=== PATIENT | female | born 1995 | race Caucasian/White ===

== ENCOUNTER 2023-03-16 15:56 | Inpatient (IN) | payer MEDICAID ==
[~2023-03-16] VITALS: Ht 165.1 cm; Wt 101.6 kg
[2023-03-16 17:41] VITALS: RESP 17; TEMP 98.2
[2023-03-16 18:11] VITALS: BP 118/71; PULSE 104; RESP 18; TEMP 98; O2SAT 99
[2023-03-16] MEDS: LORazepam 2 MG TABLET PO PRN (20:37)
[2023-03-16] MEDS: ZOLPIDEM TARTRATE 10 MG TABLET PO PRN (20:37)
[2023-03-16 20:40] VITALS: BP 118/73; PULSE 95; RESP 18; TEMP 97; O2SAT 98
[2023-03-16] MEDS ORDERED: IBUPROFEN 600 MG TABLET PO PRN (21:15)
[2023-03-16] MEDS ORDERED: ALBUTEROL SULFATE HFA 90 MCG/PUFF 8 GM INHALER IH PRN (21:15)
[2023-03-16] MEDS ORDERED: BACITRACIN 28 GM OINTMENT TP PRN (21:15)
[2023-03-16] MEDS ORDERED: LOPERAMIDE HCL 2 MG CAPSULE PO PRN (21:15)
[2023-03-16] MEDS ORDERED: MAG HYDROX/AL HYDROX/SIMETH ES 30 ML SUSPENSION UDCUP PO PRN (21:15)
[2023-03-16] MEDS ORDERED: CloNIDine HCL 0.1 MG TABLET PO PRN (21:15)
[2023-03-16] MEDS ORDERED: ONDANSETRON HCL 4 MG TABLET PO PRN (21:15)
[2023-03-16] MEDS ORDERED: ACETAMINOPHEN 325 MG TABLET PO PRN (21:15)
[2023-03-16] MEDS ORDERED: OMEPRAZOLE 20 MG CAPSULE PO PRN (21:15)
[2023-03-16] MEDS ORDERED: DOCUSATE SODIUM 100 MG CAPSULE PO PRN (21:15)
[2023-03-16] MEDS ORDERED: PETROLATUM,WHITE 28 GM JELLY TP PRN (21:15)
[2023-03-16] MEDS ORDERED: MAGNESIUM HYDROXIDE SUSPENSION 30 ML UDCUP PO PRN (21:15)
[2023-03-17] MEDS: NYSTATIN 15 GM POWDER BOTTLE TP SCH ×2 (08:12→17:06)
[2023-03-17 09:10] LABS: BASOPHILS % (AUTO) 1.4 % (0.0-2.0); EOSINOPHILS % (AUTO) 1.8 % (1.0-6.0); HEMATOCRIT 38.3 % (36-46); HEMOGLOBIN 12.6 g/dL (12.0-16.0); LYMPHOCYTES # (AUTO) 2.8 K/uL (1.0-4.8); LYMPHOCYTES % (AUTO) 27.1 % (22.0-44.0); MEAN CORPUSCULAR HEMOGLOBIN 27.2 pg (26.0-34.0); MEAN CORPUSCULAR HGB CONC 32.8 G/dL (31.0-37.0); MEAN CORPUSCULAR VOLUME 83 fL (80-100); MONOCYTES # (AUTO) 0.8 K/uL (0.1-1.0); MONOCYTES % (AUTO) 7.5 % (2.0-9.0); NEUTROPHILS # (AUTO) 6.5 K/uL (1.8-7.7); NEUTROPHILS % (AUTO) 62.2 % (40.0-70.0); PLATELET COUNT (AUTO) 248 K/uL (150-450); RED BLOOD CELL COUNT(AUTO) 4.63 MIL/uL (4.00-5.20); RED CELL DISTRIBUTION WIDTH 14.3 % (11.5-14.5)
[2023-03-17 09:18] VITALS: BP 125/67; PULSE 91; RESP 18; TEMP 98; O2SAT 93
[2023-03-17 09:26] LABS: HEMOGLOBIN A1C 5.7 % (3.8-5.6)
[2023-03-17 09:53] LABS: ALANINE AMINOTRANSFERASE 38 U/L (12-78); ALBUMIN 3.2 g/dL (3.4-5.0); ALKALINE PHOSPHATASE 76 U/L (46-116); ANION GAP 6 mmol/L (8-16); ASPARTATE AMINOTRANSFERASE 22 U/L (15-37); BILIRUBIN,TOTAL 0.7 mg/dL (0.1-1.0); CARBON DIOXIDE 27 mmol/L (22-29); CHLORIDE 103 mmol/L (98-107); CHOLESTEROL 128 mg/dL (131-200); CREATININE 0.85 mg/dL (0.60-1.30); FREE T4 (FREE THYROXINE) 0.92 ng/dL (0.76-1.46); GLOMERULAR FILTR. RATE CALC > 60 mL/min (>60); GLUCOSE,RANDOM 103 mg/dL (70-110); HCG,QUANTITATIVE < 1 mIU/mL (0-6); HDL CHOLESTEROL 32 mg/dL (40-60); LDL CHOL (CALC.) 79 mg/dL (0-130); POTASSIUM 4.2 mmol/L (3.5-5.1); SODIUM SERUM 136 mmol/L (136-145); THYROID STIMULATING HORMONE 1.83 uIU/mL (0.36-3.74); TOTAL PROTEIN, SERUM 7.4 g/dL (6.4-8.2); TRIGLYCERIDES 86 mg/dL (15-150)
[2023-03-17] MEDS: LORazepam 2 MG TABLET PO PRN (13:19)
[2023-03-17] MEDS: RisperiDONE 1 MG TABLET PO SCH (18:09)
[2023-03-17 20:03] VITALS: BP 121/69; PULSE 96; RESP 18; TEMP 97.8
[2023-03-18 07:06] LABS: HEPATITIS C AB (EIA) Non Reactive (Non Reactive)
[2023-03-18 08:16] VITALS: BP 137/72; PULSE 102; RESP 18; TEMP 97.8; O2SAT 96
[2023-03-18] MEDS: NYSTATIN 15 GM POWDER BOTTLE TP SCH ×2 (08:28→16:13)
[2023-03-18] MEDS: RisperiDONE 1 MG TABLET PO SCH ×2 (08:28→16:13)
[2023-03-18] MEDS: LORazepam 2 MG TABLET PO PRN ×2 (08:59→20:17)
[2023-03-18 18:24] VITALS: BP 112/52; PULSE 97; RESP 18; TEMP 97.3; O2SAT 98
[2023-03-18 20:00] VITALS: BP 135/86; PULSE 115; RESP 18; TEMP 97.3; O2SAT 97
[2023-03-18] MEDS: ZOLPIDEM TARTRATE 10 MG TABLET PO PRN (20:18)
[2023-03-18 23:30] VITALS: BP 128/82; PULSE 89; RESP 18; TEMP 97.6; O2SAT 98
[2023-03-19] MEDS: RisperiDONE 1 MG TABLET PO SCH ×2 (08:25→16:25)
[2023-03-19] MEDS: NYSTATIN 15 GM POWDER BOTTLE TP SCH ×2 (08:26→16:25)
[2023-03-19 09:55] VITALS: BP 144/90; PULSE 100; RESP 19; TEMP 97.8; O2SAT 97
[2023-03-19] MEDS: ZOLPIDEM TARTRATE 10 MG TABLET PO PRN (20:05)
[2023-03-19 20:11] VITALS: BP 134/84; PULSE 103; RESP 18; TEMP 97.3; O2SAT 98
[2023-03-20] MEDS: RisperiDONE 1 MG TABLET PO SCH ×2 (08:00→16:36)
[2023-03-20] MEDS: NYSTATIN 15 GM POWDER BOTTLE TP SCH ×2 (08:00→16:42)
[2023-03-20 09:09] LABS: APPEARANCE,URINE CLEAR (CLEAR); BILIRUBIN,URINE NEGATIVE (NEGATIVE); GLUCOSE, URINE (UA) NEGATIVE (NEGATIVE); KETONES,URINE NEGATIVE (NEGATIVE); LEUKOCYTE ESTERASE ,URINE NEGATIVE (NEGATIVE); NITRATE,URINE NEGATIVE (NEGATIVE); OCCULT BLOOD,URINE NEGATIVE (NEGATIVE); PROTEIN,URINE NEGATIVE (NEGATIVE); SPECIFIC GRAVITIY, URINE 1.013 (1.003-1.030); UROBILINOGEN,URINE <=1.0 mg/dL (<=1.0)
[2023-03-20 09:18] VITALS: BP 128/56; PULSE 89; RESP 19; TEMP 97.8; O2SAT 97
[2023-03-20 09:19] LABS: AMPHET/METH SCREEN,URINE NEGATIVE (NEGATIVE); BARBITURATE SCREEN, URINE NEGATIVE (NEGATIVE); BENZODIAZEPINES SCREEN,URINE NEGATIVE (NEGATIVE); CANNABINOID SCREEN,URINE NEGATIVE (NEGATIVE); COCAINE SCREEN,URINE NEGATIVE (NEGATIVE); METHADONE SCREEN, URINE NEGATIVE (NEGATIVE); OPIATE SCREEN,URINE NEGATIVE (NEGATIVE); PHENCYCLIDINE SCREEN,URINE NEGATIVE (NEGATIVE)
[2023-03-20] MEDS: NICOTINE POLACRILEX 4 MG LOZENGE PO PRN ×2 (10:19→16:20)
[2023-03-20 12:46] VITALS: RESP 17
[2023-03-20 13:46] VITALS: RESP 18
[2023-03-20 20:11] VITALS: BP 108/69; PULSE 97; RESP 18; TEMP 97.7; O2SAT 98
[2023-03-20] MEDS: ZOLPIDEM TARTRATE 10 MG TABLET PO PRN (20:20)
[2023-03-21] MEDS: NYSTATIN 15 GM POWDER BOTTLE TP SCH ×2 (08:22→18:29)
[2023-03-21] MEDS: RisperiDONE 1 MG TABLET PO SCH ×2 (08:22→18:28)
[2023-03-21 08:27] VITALS: BP 114/69; PULSE 84; RESP 16; TEMP 97.9; O2SAT 96
[2023-03-21] MEDS: NICOTINE POLACRILEX 4 MG LOZENGE PO PRN ×3 (09:45→18:29)
[2023-03-21 20:29] VITALS: BP 129/82; PULSE 99; RESP 17; TEMP 97.7; O2SAT 100
[2023-03-21] MEDS: ZOLPIDEM TARTRATE 10 MG TABLET PO PRN (20:30)
[2023-03-21] MEDS: LORazepam 2 MG TABLET PO PRN (20:30)
[2023-03-22] MEDS ORDERED: RisperiDONE MICROSPHERES 50 MG/2 ML SYRINGE IM ONE (08:15)
[2023-03-22] MEDS: RisperiDONE 1 MG TABLET PO SCH (08:38)
[2023-03-22] MEDS: NYSTATIN 15 GM POWDER BOTTLE TP SCH ×2 (08:46→16:13)
[2023-03-22 08:58] VITALS: BP 100/60; PULSE 80; RESP 17; TEMP 98; O2SAT 97
[2023-03-22] MEDS ORDERED: RisperiDONE MICROSPHERES 50 MG/2 ML SYRINGE IM SCH (09:00)
[2023-03-22] MEDS: NICOTINE POLACRILEX 4 MG LOZENGE PO PRN ×2 (13:40→17:44)
[2023-03-22] MEDS: RisperiDONE 2 MG TABLET PO SCH (16:13)
[2023-03-22] MEDS: LORazepam 2 MG TABLET PO PRN (16:13)
[2023-03-22 20:11] VITALS: BP 101/67; PULSE 107; RESP 20; TEMP 97.8; O2SAT 98
[2023-03-23] MEDS: RisperiDONE 2 MG TABLET PO SCH ×2 (08:12→16:03)
[2023-03-23] MEDS: NYSTATIN 15 GM POWDER BOTTLE TP SCH ×2 (08:12→16:02)
[2023-03-23 08:20] VITALS: BP 113/69; PULSE 78; RESP 16; TEMP 98.6; O2SAT 96
[2023-03-23] MEDS: NICOTINE POLACRILEX 4 MG LOZENGE PO PRN (15:30)
[2023-03-23 21:12] VITALS: BP 122/68; PULSE 96; RESP 18; TEMP 97.8; O2SAT 99
[2023-03-24] MEDS: NYSTATIN 15 GM POWDER BOTTLE TP SCH ×2 (08:21→16:30)
[2023-03-24] MEDS: RisperiDONE 1 MG TABLET PO PRN (08:23)
[2023-03-24] MEDS: RisperiDONE 2 MG TABLET PO SCH ×2 (08:30→16:30)
[2023-03-24] MEDS: NICOTINE POLACRILEX 4 MG LOZENGE PO PRN ×2 (08:57→16:31)
[2023-03-24 11:28] VITALS: BP 126/76; PULSE 89; RESP 18; TEMP 97.4; O2SAT 97
[2023-03-24] MEDS: LORazepam 2 MG TABLET PO PRN (18:09)
[2023-03-24 20:43] VITALS: BP 122/80; PULSE 96; RESP 19; TEMP 97.1; O2SAT 96
[2023-03-25 08:09] VITALS: BP 116/74; PULSE 76; RESP 16; TEMP 98; O2SAT 98
[2023-03-25] MEDS: RisperiDONE 2 MG TABLET PO SCH ×2 (08:20→16:22)
[2023-03-25] MEDS: NYSTATIN 15 GM POWDER BOTTLE TP SCH ×2 (08:21→16:39)
[2023-03-25] MEDS: NICOTINE POLACRILEX 4 MG LOZENGE PO PRN (16:19)
[2023-03-25] MEDS: LORazepam 2 MG TABLET PO PRN (16:22)
[2023-03-25 22:23] VITALS: BP 117/68; PULSE 75; RESP 18; TEMP 97.9
[2023-03-26 08:24] VITALS: BP 137/60; PULSE 100; RESP 17; TEMP 98; O2SAT 98
[2023-03-26] MEDS: NYSTATIN 15 GM POWDER BOTTLE TP SCH ×2 (08:25→16:48)
[2023-03-26] MEDS: RisperiDONE 2 MG TABLET PO SCH ×2 (08:25→16:08)
[2023-03-26] MEDS: LORazepam 2 MG TABLET PO PRN ×2 (09:43→15:48)
[2023-03-26] MEDS: NICOTINE POLACRILEX 4 MG LOZENGE PO PRN (15:48)
[2023-03-26] MEDS ORDERED: LORazepam 2 MG/ML VIAL ONE (16:48)
[2023-03-26] MEDS ORDERED: DiphenhydrAMINE HCL 50 MG/ML VIAL ONE (16:48)
[2023-03-26] MEDS ORDERED: LORazepam 2 MG/ML VIAL IM ONE (17:00)
[2023-03-26] MEDS ORDERED: HALOPERIDOL LACTATE 5 MG/ML VIAL IM ONE (17:00)
[2023-03-26] MEDS ORDERED: DiphenhydrAMINE HCL 50 MG/ML VIAL IM ONE (17:00)
[2023-03-26 20:00] VITALS: BP 124/68; PULSE 89; RESP 19; TEMP 97.9; O2SAT 98
[2023-03-27] MEDS: NYSTATIN 15 GM POWDER BOTTLE TP SCH ×2 (08:13→16:03)
[2023-03-27] MEDS: RisperiDONE 2 MG TABLET PO SCH ×2 (08:13→16:03)
[2023-03-27] MEDS: LORazepam 2 MG TABLET PO PRN ×3 (08:13→21:21)
[2023-03-27 08:40] VITALS: BP 125/79; PULSE 108; RESP 17; TEMP 98.1; O2SAT 99
[2023-03-27] MEDS: NICOTINE POLACRILEX 4 MG LOZENGE PO PRN (16:19)
[2023-03-27] MEDS: ZOLPIDEM TARTRATE 10 MG TABLET PO PRN (21:21)
[2023-03-28 02:13] VITALS: BP 128/77; PULSE 85; RESP 18; TEMP 98; O2SAT 98
[2023-03-28 08:37] VITALS: BP 106/68; PULSE 79; RESP 16; TEMP 98; O2SAT 96
[2023-03-28] MEDS: NYSTATIN 15 GM POWDER BOTTLE TP SCH ×3 (09:08→17:13)
[2023-03-28] MEDS: RisperiDONE 2 MG TABLET PO SCH ×2 (09:08→16:49)
[2023-03-28] MEDS: LORazepam 2 MG TABLET PO PRN (13:08)
[2023-03-28] MEDS: NICOTINE POLACRILEX 4 MG LOZENGE PO PRN ×2 (13:08→17:09)
[2023-03-28 20:32] VITALS: BP 145/84; PULSE 101; RESP 18; TEMP 97.6; O2SAT 97
[2023-03-29] MEDS: LORazepam 2 MG TABLET PO PRN ×2 (08:14→16:22)
[2023-03-29] MEDS: NYSTATIN 15 GM POWDER BOTTLE TP SCH ×2 (08:14→16:17)
[2023-03-29] MEDS: RisperiDONE 1 MG TABLET PO PRN (08:14)
[2023-03-29 08:18] VITALS: BP 116/72; PULSE 69; RESP 16; TEMP 98.2; O2SAT 97
[2023-03-29] MEDS: RisperiDONE 2 MG TABLET PO SCH ×2 (08:55→16:19)
[2023-03-29] MEDS: NICOTINE POLACRILEX 4 MG LOZENGE PO PRN (09:56)
[2023-03-29 20:17] VITALS: BP 119/79; PULSE 112; RESP 18; TEMP 98; O2SAT 99
[2023-03-30 08:30] VITALS: BP 111/70; PULSE 94; RESP 18; TEMP 97.7; O2SAT 97
[2023-03-30] MEDS: RisperiDONE 2 MG TABLET PO SCH ×2 (08:42→16:16)
[2023-03-30] MEDS: NYSTATIN 15 GM POWDER BOTTLE TP SCH ×2 (08:43→16:17)
[2023-03-30] MEDS: NICOTINE POLACRILEX 4 MG LOZENGE PO PRN ×2 (09:18→16:19)
[2023-03-30 20:14] VITALS: BP 125/85; PULSE 111; RESP 22; TEMP 98.4; O2SAT 98
[2023-03-31 08:39] VITALS: BP 136/81; PULSE 83; RESP 16; TEMP 98; O2SAT 97
[2023-03-31] MEDS: RisperiDONE 2 MG TABLET PO SCH ×2 (09:27→16:32)
[2023-03-31] MEDS: NYSTATIN 15 GM POWDER BOTTLE TP SCH ×2 (09:27→16:32)
[2023-03-31] MEDS: NICOTINE POLACRILEX 4 MG LOZENGE PO PRN (10:31)
[2023-03-31] MEDS: BENZOCAINE/MENTHOL LOZENGE PO PRN (13:31)
[2023-03-31 14:47] VITALS: RESP 16
[2023-03-31 15:47] VITALS: RESP 17
[2023-03-31] MEDS ORDERED: DiphenhydrAMINE HCL 50 MG/ML VIAL ONE (17:24)
[2023-03-31] MEDS ORDERED: LORazepam 2 MG/ML VIAL ONE (17:24)
[2023-03-31] MEDS ORDERED: HALOPERIDOL LACTATE 5 MG/ML VIAL ONE (17:24)
[2023-03-31] MEDS ORDERED: DiphenhydrAMINE HCL 50 MG/ML VIAL IM ONE (17:30)
[2023-03-31] MEDS ORDERED: LORazepam 2 MG/ML VIAL IM ONE ×2 (17:30→17:45)
[2023-03-31] MEDS ORDERED: HALOPERIDOL LACTATE 5 MG/ML VIAL IM ONE (17:30)
[2023-03-31 20:05] VITALS: BP 120/74; PULSE 89; RESP 17; TEMP 97.7
[2023-04-01] MEDS: RisperiDONE 1 MG TABLET PO PRN (08:17)
[2023-04-01] MEDS: LITHIUM CARBONATE 300 MG CAPSULE PO SCH ×2 (08:17→20:39)
[2023-04-01] MEDS: DIVALPROEX SODIUM 500 MG DR TABLET PO SCH ×2 (08:17→20:39)
[2023-04-01] MEDS: RisperiDONE 2 MG TABLET PO SCH ×2 (08:21→16:45)
[2023-04-01] MEDS: NYSTATIN 15 GM POWDER BOTTLE TP SCH ×2 (08:23→16:45)
[2023-04-01 08:26] VITALS: BP 137/83; PULSE 92; RESP 18; TEMP 98.4; O2SAT 97
[2023-04-01] MEDS: NICOTINE POLACRILEX 4 MG LOZENGE PO PRN (16:39)
[2023-04-01 20:03] VITALS: BP 126/79; PULSE 87; RESP 18; TEMP 98; O2SAT 97
[2023-04-02] MEDS: NYSTATIN 15 GM POWDER BOTTLE TP SCH ×2 (08:01→16:53)
[2023-04-02] MEDS: DIVALPROEX SODIUM 500 MG DR TABLET PO SCH ×2 (08:01→20:04)
[2023-04-02] MEDS: LITHIUM CARBONATE 300 MG CAPSULE PO SCH ×2 (08:01→20:04)
[2023-04-02] MEDS: RisperiDONE 2 MG TABLET PO SCH ×2 (08:01→16:41)
[2023-04-02 08:31] VITALS: BP 132/91; PULSE 96; RESP 16; TEMP 97.9; O2SAT 98
[2023-04-02] MEDS: HALOPERIDOL 5 MG TABLET PO PRN (10:01)
[2023-04-02] MEDS: NICOTINE POLACRILEX 4 MG LOZENGE PO PRN (10:46)
[2023-04-02] MEDS: LORazepam 2 MG TABLET PO PRN (13:23)
[2023-04-02 20:00] VITALS: BP 134/78; PULSE 96; RESP 17; TEMP 97.4; O2SAT 96
[2023-04-03] MEDS: DIVALPROEX SODIUM 500 MG DR TABLET PO SCH ×2 (08:24→20:05)
[2023-04-03] MEDS: RisperiDONE 2 MG TABLET PO SCH ×2 (08:24→16:15)
[2023-04-03] MEDS: LITHIUM CARBONATE 300 MG CAPSULE PO SCH ×2 (08:24→20:05)
[2023-04-03] MEDS: NYSTATIN 15 GM POWDER BOTTLE TP SCH ×2 (08:25→16:15)
[2023-04-03 09:00] VITALS: BP 122/66; PULSE 64; RESP 18; TEMP 98.4; O2SAT 97
[2023-04-03 10:32] VITALS: BP 122/66; PULSE 64; RESP 18; TEMP 98.4; O2SAT 97
[2023-04-03] MEDS: LORazepam 2 MG TABLET PO PRN (10:48)
[2023-04-03] MEDS: NICOTINE POLACRILEX 4 MG LOZENGE PO PRN (10:48)
[2023-04-03 21:41] VITALS: BP 118/68; PULSE 66; RESP 17; TEMP 98.6; O2SAT 96
[2023-04-04 06:26] LABS: GLUCOMETER DEV NAME(LOC) POC.BV
[2023-04-04] MEDS: LITHIUM CARBONATE 300 MG CAPSULE PO SCH ×2 (08:20→20:51)
[2023-04-04] MEDS: RisperiDONE 2 MG TABLET PO SCH ×2 (08:20→16:20)
[2023-04-04] MEDS: DIVALPROEX SODIUM 500 MG DR TABLET PO SCH ×2 (08:21→20:50)
[2023-04-04 08:23] VITALS: BP 102/65; PULSE 62; RESP 16; TEMP 97.9; O2SAT 96
[2023-04-04] MEDS: NYSTATIN 15 GM POWDER BOTTLE TP SCH ×2 (09:12→17:08)
[2023-04-04] MEDS: NICOTINE POLACRILEX 4 MG LOZENGE PO PRN ×2 (14:03→18:06)
[2023-04-04] MEDS: HALOPERIDOL 5 MG TABLET PO PRN (16:20)
[2023-04-04] MEDS: LORazepam 2 MG TABLET PO PRN (16:20)
[2023-04-04 20:00] VITALS: BP 111/68; PULSE 70; RESP 18; TEMP 98
[2023-04-04] MEDS: ZOLPIDEM TARTRATE 10 MG TABLET PO PRN (20:51)
[2023-04-05] MEDS: RisperiDONE 2 MG TABLET PO SCH (08:00)
[2023-04-05] MEDS: DIVALPROEX SODIUM 500 MG DR TABLET PO SCH (08:00)
[2023-04-05] MEDS: NYSTATIN 15 GM POWDER BOTTLE TP SCH (08:00)
[2023-04-05] MEDS: LITHIUM CARBONATE 300 MG CAPSULE PO SCH (08:00)
[2023-04-05] MEDS ORDERED: RisperiDONE MICROSPHERES 50 MG/2 ML SYRINGE IM SCH (09:00)
[2023-04-05 11:06] VITALS: BP 143/69; PULSE 109; RESP 18; TEMP 97.4; O2SAT 96
[2023-04-05] MEDS: NICOTINE POLACRILEX 4 MG LOZENGE PO PRN (11:49)
[2023-04-05] MEDS ORDERED: DIVA-112 PO (12:19)
[2023-04-05] MEDS ORDERED: LITH300C3 PO (12:20)
[2023-04-05] MEDS ORDERED: RISP2TAB86 PO (12:20)
[2023-04-05] MEDS: BENZOCAINE/MENTHOL LOZENGE PO PRN (13:14)
== END 2023-04-05 16:19 | disposition home or self-care (01) | DRG 750 ==
LOC: B3A 16:40
PROVIDERS: ADMIT Psychiatry & Neurology Psychiatry; ATTEND Psychiatry & Neurology Psychiatry
DX: F20.0 Paranoid schizophrenia (principal); R45.851 Suicidal ideations; F19.10 Other psychoactive substance abuse, uncomplicated; Z20.822 Contact with and (suspected) exposure to COVID-19; F41.9 Anxiety disorder, unspecified; F84.0 Autistic disorder; G47.00 Insomnia, unspecified; K59.00 Constipation, unspecified; L30.9 Dermatitis, unspecified; Z79.899 Other long term (current) drug therapy
CPT/HCPCS: 80053; 80061; 80307; 81003; 83036; 84436; 84439; 84443; 84702; 84703; 85025; 86592; 86803; 87340; G0480; J1200; J1630; J2060; J2794; Q9967